=== PATIENT | male | born 1990 | race Caucasian/White ===

== ENCOUNTER 2019-04-15 16:14 | Emergency (ER) | payer SELFPAY ==
[~2019-04-15] VITALS: Ht 167.6 cm; Wt 86.4 kg
[2019-04-15 18:36] VITALS: BP 131/78
== END 2019-04-15 18:42 | disposition home or self-care (01) ==
LOC: EMS 16:18
DX: M79.672 Pain in left foot (principal); F31.9 Bipolar disorder, unspecified; F20.9 Schizophrenia, unspecified